=== PATIENT | male | born 1975 | race American Indian/Alaskan Native ===

== ENCOUNTER 2021-02-22 08:04 | Emergency (ER) | payer SELFPAY ==
[2021-02-22 08:17] VITALS: BP 151/95
--- NOTE | 2021-02-22 10:54 | Emergency Department Report ---
ED Lower Extremity HPI - General Chief Complaint: Extremity Injury, Lower Stated Complaint: TOE INJURY TO THE RIGHT FOOT Time Seen by Provider: 02/22/21 10:49 Source: patient Mode of arrival: Ambulatory Limitations: No Limitations - History of Present Illness Initial Comments: Patient is a 45-year-old male who presents emergency room with complaints of right foot and right third toe pain that began 2 days ago. Patient states that he accidentally dropped a cooking pot on his foot that was not in use. He states he has injured this foot in the past but is not sure what he did. He denies any surgeries of the foot. He is ambulatory. He denies any numbness or weakness. He states he has continued to have some foot pain and swelling. Past medical history of diabetes and hypertension. No allergies to medications. - Related Data Previous Rx's Medication Instructions Recorded Last Taken Type Naproxen [EC-Naprosyn] 500 mg PO BID PRN #14 tablet. 02/22/21 Unknown Rx Allergies Allergy/AdvReac Type Severity Reaction Status Date / Time No Known Allergies Allergy Unverified 02/22/21 08:11 ED Review of Systems ROS: Stated complaint: TOE INJURY TO THE RIGHT FOOT Other details as noted in HPI Comment: All other systems reviewed and negative ED Past Medical Hx - Past Medical History Previous Medical History?: Yes Hx Hypertension: Yes Hx Diabetes: Yes (borderline) - Surgical History Past Surgical History?: No - Medications Home Medications: Home Medications Medication Instructions Recorded Confirmed Last Taken Type Naproxen [EC-Naprosyn] 500 mg PO BID PRN #14 tablet. 02/22/21 Unknown Rx ED Physical Exam - General Limitations: No Limitations General appearance: alert, in no apparent distress - Head Head exam: Present: atraumatic, normocephalic - Eye Eye exam: Present: normal appearance - ENT ENT exam: Present: mucous membranes moist - Respiratory Respiratory exam: Absent: respiratory distress, accessory muscle use - Extremities Exam Extremities exam: Present: other (ttp to the right distal dorsal foot and the right 3rd toe, there is swelling present to the right 3rd toe, skin is intact, FROM of the RLE, no other bony ttp, neurovascularly intact) - Neurological Exam Neurological exam: Present: alert, oriented X3 - Psychiatric Psychiatric exam: Present: normal affect, normal mood - Skin Skin exam: Present: warm, dry, intact ED Course Vital Signs 02/22/21 08:15 Temperature 98.5 F Pulse Rate 70 Respiratory 20 Rate Blood Pressure 151/95 [Right] O2 Sat by Pulse 98 Oximetry ED Lower Extremity MDM - Radiology Data Radiology results: report reviewed Ordering Physician: FRANKIE ROSAS Date of Service: 02/22/21 Procedure(s): XR foot 3+V RT Accession Number(s): [id number] cc: FRANKIE ROSAS Fluoro Time In Minutes: Right foot radiograph, 3 views HISTORY: Pain COMPARISON: None FINDINGS: There is an acute acute mildly comminuted fracture involving the base of the third toe proximal phalanx. Mild lateral displacement of the distal fracture fragment. There is intra- articular involvement without significant intra-articular incongruency. No additional fracture. Lisfranc interval is preserved. Mild soft tissue swelling, greatest at the dorsal forefoot. IMPRESSION: Acute intra-articular fracture of the base of the third toe proximal phalanx. Signer Name: Mario Leahy MD Signed: 02/22/2021 11:44 AM Workstation Name: [id number] Transcribed By: LEOBARDO Dictated By: MARIO LEAHY MD Electronically Authenticated By: MARIO LEAHY MD Signed Date/Time: 02/22/21 1144 DD/ 1142 TD/TT: - Medical Decision Making Patient is a 45-year-old male who presents emergency room with complaints of right foot and right third toe pain that began 2 days ago. Patient states that he accidentally dropped a cooking pot on his foot that was not in use. He states he has injured this foot in the past but is not sure what he did. He denies any surgeries of the foot. He is ambulatory. He denies any numbness or weakness. He states he has continued to have some foot pain and swelling. Past medical history of diabetes and hypertension. No allergies to medications. Vitals are stable. On exam:ttp to the right distal dorsal foot and the right 3rd toe, there is swelling present to the right 3rd toe, skin is intact, FROM of the RLE, no other bony ttp, neurovascularly intact. X-ray right foot: IMPRESSION: Acute intra-articular fracture of the base of the third toe proximal phalanx. Discussed all results with patient. Lukas taping performed by jett and patient placed in postop shoe and given crutches. Patient given prescription for naproxen. Advised patient Please take medication as prescribed as needed. Follow-up with orthopedic doctor. Return to emergency room for new or worsening symptoms. Critical care attestation.: If time is entered above; I have spent that time in minutes in the direct care of this critically ill patient, excluding procedure time. ED Disposition Clinical Impression: Toe fracture Qualifiers: Encounter type: initial encounter Toe: lesser toe Fracture type: closed Phalanx: proximal Fracture alignment: displaced Laterality: right Qualified Code(s): S92.511A - Displaced fracture of proximal phalanx of right lesser toe(s), initial encounter for closed fracture Disposition: TO HOME OR SELFCARE Is pt being admited?: No Does the pt Need Aspirin: No Condition: Stable Instructions: Toe Fracture, [id number] Additional Instructions: Please take medication as prescribed as needed. Follow-up with orthopedic doctor. Return to emergency room for new or worsening symptoms. Prescriptions: Naproxen [EC-Naprosyn] 500 mg PO BID PRN #14 tablet.dr BLAKE Reason: pain Referrals: PRIMARY CAREMD [Primary Care Provider] - 3-5 Days EROS MARCELO MD [Staff Physician] - 3-5 Days [facility] [Provider Group] - 3-5 Days Time of Disposition: 12:07 Print Language: NEPALI
--- NOTE | 2021-02-22 11:49 | XRay Report ---
Right foot radiograph, 3 views HISTORY: Pain COMPARISON: None FINDINGS: There is an acute acute mildly comminuted fracture involving the base of the third toe prox imal phalanx. Mild lateral displacement of the distal fracture fragment. There is intra-articular inv olvement without significant intra-articular incongruency. No additional fracture. Lisfranc interval is preserved. Mild soft tissue swelling, greatest at the dorsal forefoot. IMPRESSION: Acute intra-articular fracture of the base of the third toe proximal phalanx. Signer Name: Arnel Leahy MD Signed: 02/22/2021 11:44 AM Workstation Name: [id number]
== END 2021-02-22 12:43 | disposition home or self-care (01) ==
LOC: ED 08:04
DX: S92.511A Displaced fracture of proximal phalanx of right lesser toe(s), initial encounter for closed fracture (principal); I10 Essential (primary) hypertension; E11.9 Type 2 diabetes mellitus without complications; Z79.899 Other long term (current) drug therapy; W22.8XXA Striking against or struck by other objects, initial encounter; Y93.89 Activity, other specified; Y92.89 Other specified places as the place of occurrence of the external cause; Y99.8 Other external cause status
CPT/HCPCS: 99283